=== PATIENT | female | born 1980 | race Caucasian/White ===

== ENCOUNTER 2024-02-25 16:12 | Emergency (ER) | payer MEDICAID ==
[2024-02-25 16:30] VITALS: BP 157/113; O2SAT 96
[2024-02-25 16:55] LABS: BILIRUBIN,URINE NEGATIVE (NEGATIVE); GLUCOSE, URINE (UA) NEGATIVE (NEGATIVE); KETONES,URINE (UA) 15 mg/dL (NEGATIVE); LEUKOCYTE ESTERASE, URINE NEGATIVE (NEGATIVE); NITRITE,URINE NEGATIVE (NEGATIVE); OCCULT BLOOD,URINE SMALL (NEGATIVE); PH,URINE 5.5 PH (5.0-7.5); PROTEIN,URINE 100 mg/dL (NEGATIVE); UROBILINOGEN,URINE 1 (NORMAL) E.U./dL (NORMAL)
[2024-02-25 16:59] LABS: CLARITY,URINE HAZY (CLEAR); HCG UR QUAL NEGATIVE
[2024-02-25 17:18] LABS: BACTERIA,URINE Moderate /HPF (None Seen); SQUAMOUS EPITHELIAL CELL,UR MOD Squamous (<= Few)
--- NOTE | 2024-02-25 18:10 | ED Physician Documentation ---
History of Present Illness - Stated complaint Stated Complaint: UTI - Chief complaint Chief Complaint: UTI - Additonal information Additional information: 43-year-old female with past medical history of anxiety presents stating she feels like she has a UTI. She has some suprapubic discomfort which has been going on for about 2 weeks. She has been taking [id number] Azo with no relief. She thinks she may have had a fever yesterday but is not sure, no vomiting, no diarrhea, no flank pain. She states she feels well other than the dysuria. She denies any vaginal discharge. She states she recently started having intercourse again but has no concern for STI. She has a Nexplanon for prevention. She states this feels exactly the same as prior UTI. Patient noted to be quite tachycardic and patient states that she gets panic attacks when she comes into the emergency department, she states she is not having chest pain, no difficulty breathing, no heart palpitations and denies any concern about her heart rate today. Review of Systems Constitutional: reports: Reviewed and negative Eyes: reports: Reviewed and negative Ears: reports: Reviewed and negative Nose: reports: Reviewed and negative Throat: reports: Reviewed and negative Cardiac: reports: Reviewed and negative Respiratory: reports: Reviewed and negative GI: reports: Reviewed and negative : reports: Dysuria Skin: reports: Reviewed and negative Musculoskeletal: reports: Reviewed and negative PD PAST MEDICAL HISTORY - Past Medical History Past Medical History: No - Past Surgical History Past Surgical History: Yes Ortho: ACL reconstruction - Present Medications Home Medications: Ambulatory Orders Medication Instructions Recorded Confirmed Phenazopyridine HCl [Pyridium] 200 mg PO TID #6 tablet 02/25/24 cephALEXin [Keflex] 500 mg PO BID #20 cap 02/25/24 clonazePAM [Clonazepam] 0.5 mg PO DAILY 02/25/24 02/25/24 - Allergies Allergies/Adverse Reactions: Allergies Allergy/AdvReac Type Severity Reaction Status Date / Time No Known Drug Allergies Allergy Verified 02/25/24 16:28 - Social History Does the pt smoke?: No Smoking Status: Never smoker Does the pt drink ETOH?: No Does the pt have substance abuse?: No - Immunizations Immunizations are current?: Yes - POLST Patient has POLST: No PD ED PE NORMAL - Vitals Vital signs reviewed: Yes - General General: Alert and oriented X 3, No acute distress, Well developed/nourished - HEENT HEENT: Atraumatic, Moist mucous membranes - Neck Neck: Supple, no meningeal sign, No JVD - Cardiac Cardiac: No murmur, No gallop, No rub, Other (Tachycardic) - Respiratory Respiratory: No respiratory distress, Clear bilaterally - Abdomen Abdomen: Normal bowel sounds, Soft, Non tender, Non distended, Other (Mild suprapubic discomfort without guarding) - Back Back: No CVA TTP, No spinal TTP - Derm Derm: Normal color, Warm and dry, No rash Results - Vitals Vitals: Vital Signs - 24 hr 02/25/24 16:26 Temperature 36.8 C Heart Rate 132 H Respiratory 20 Rate Blood Pressure 157/113 H O2 Saturation 96 Oxygen O2 Source Room air - Labs Labs: Laboratory Tests 02/25/24 16:30 Urine Color YELLOW Urine Clarity HAZY Urine pH 5.5 Ur Specific [place] 1.025 Urine Protein 100 H Urine Glucose (UA) NEGATIVE Urine Ketones 15 H Urine Occult Blood SMALL H Urine Nitrite NEGATIVE Urine Bilirubin NEGATIVE Urine Urobilinogen 1 (NORMAL) Ur Leukocyte Esterase NEGATIVE Urine RBC 6-10 H Urine WBC 4-5 Ur Squamous Epith Cells MOD Squamous H Urine Bacteria Moderate H Ur Microscopic Review INDICATED Urine Culture Comments NOT INDICATED Urine HCG, Qual NEGATIVE PD Medical Decision Making - ED course Complexity details: reviewed results, re-evaluated patient, considered differential, d/w patient ED course: 43-year-old female presents with concern for possible UTI. She has had dysuria for about 2 weeks. The patient is well-appearing here on physical exam, afebrile nontoxic, is tachycardic but she states is secondary to her anxiety and she otherwise feels fine. She has no flank pain to suggest pyelonephritis, no signs of ureteral stone, no other abdominal pain. Her urinalysis is significant for blood and bacteria with no white blood cells, no nitrates and no obvious infection. The patient declines STI testing at this time as she states that this is not a concern for her but I advised that I cannot completely rule it out given her urinalysis. Given her symptoms, we will treat with Keflex for 5 days with Pyridium but patient encouraged to return if she develops worsening symptoms such as fever, vomiting, flank pain, increasing abdominal pain or new concerns or if she decides to have STI testing. Departure - Departure Disposition: Home, Self Care Clinical Impression: Cystitis, Tachycardia Condition: Good Instructions: ED UTI Cystitis Female Prescriptions: cephALEXin [Keflex] 500 mg PO BID #20 cap Phenazopyridine HCl [Pyridium] 200 mg PO TID #6 tablet Comments: Your urinalysis showed some blood but no definite sign of UTI. I am going to treat you based on your symptoms, but if you do not get better in the next couple of days, then return to the ER. I have also prescribed Pyridium which is a medication that can make your urine bright orange. This sometimes helps with pain. You can take ibuprofen and Tylenol and stay well-hydrated but avoid caffeine. As we discussed, a sexually transmitted infection is a possibility but at this time you would prefer to defer testing. If no improvement, I strongly recommend that you have this testing done.
== END 2024-02-25 18:19 | disposition home or self-care (01) ==
LOC: ED 16:12
DX: N30.90 Cystitis, unspecified without hematuria (principal); R00.0 Tachycardia, unspecified; Z87.440 Personal history of urinary (tract) infections
CPT/HCPCS: 81001; 81003; 81025; 87086; 99282; 99283